=== PATIENT | male | born 1990 | race Caucasian/White ===

== ENCOUNTER 2022-05-16 19:17 | Emergency (ER) | payer OTHER, SELFPAY ==
[2022-05-16 19:22] VITALS: BP 155/92; PULSE 93; RESP 18; TEMP 36.5; O2SAT 98; BMI 38.5
--- NOTE | 2022-05-16 19:23 | ED.EYEPROB ---
HPI - Eye Problem General Chief complaint: Eye Problems <CRYSTAL White - Last Filed: 05/16/22 19:24> Stated complaint: unable to see from right eye <CRYSTAL White - Last Filed: 05/16/22 19:24> Time Seen by Provider: 05/16/22 19:52 <CRYSTAL White - Last Filed: 05/16/22 19:24> Source: patient <Julian Vail MD - Last Filed: 05/16/22 20:32> Mode of arrival: ambulatory <Julian Vail MD - Last Filed: 05/16/22 20:32> Limitations: no limitations <Julian Vail MD - Last Filed: 05/16/22 20:32> History of Present Illness HPI Narrative: patient noticed redness of right eye for last 3 days also noticed purulent discharge from right eye feel thin layer of cloud in front of right eye using homeopathic eyedrops without much relief no foreign body <Julian Vail MD - Last Filed: 05/16/22 20:32> Related Data Home medications: Previous Rx's Medication Instructions Recorded tobramycin 0.3 % eye drops 2 drp ophthalmic-Right Q4H #5 mL 05/16/22 <CRYSTAL White - Last Filed: 05/16/22 19:24> Allergies/adverse reactions: Allergies Allergy/AdvReac Type Severity Reaction Status Date / Time No Known Allergies Allergy Verified 05/16/22 19:27 <CRYSTAL White - Last Filed: 05/16/22 19:24> Review of Systems Review of Systems: Yes all other systems are reviewed and are negative <Julian Vail MD - Last Filed: 05/16/22 20:32> FOR[facility]LY [facility], [facility] Social History Social History: Social History Advance Directives: No Advance Directives Information Provided: No <CRYSTAL White - Last Filed: 05/16/22 19:24> Physical Exam Vital Signs: Vital Signs: Last Vital Signs Temp 97.7 F 05/16/22 19:22 Pulse 93 05/16/22 19:22 Resp 18 05/16/22 19:22 BP 155/92 H 05/16/22 19:22 Pulse Ox 98 05/16/22 19:22 BMI result Body Mass Index 38.5 <CRYSTAL White - Last Filed: 05/16/22 19:24> Vital Signs: Last Vital Signs Temp 97.7 F 05/16/22 19:22 Pulse 93 05/16/22 19:22 Resp 18 05/16/22 19:22 BP 155/92 H 05/16/22 19:22 Pulse Ox 98 05/16/22 19:22 BMI result Body Mass Index 38.5 <Julian Vail MD - Last Filed: 05/16/22 20:32> Const: General: no acute distress <Julian Vail MD - Last Filed: 05/16/22 20:32> HEENT: Head: Yes normal to inspection <Julian Vail MD - Last Filed: 05/16/22 20:32> Eyes: Visual Castañeda: normal visual castañeda by confrontation <Julian Vail MD - Last Filed: 05/16/22 20:32> Alignment and Position: alignment normal <Julian Vail MD - Last Filed: 05/16/22 20:32> Periorbital: periorbital findings normal <Julian Vail MD - Last Filed: 05/16/22 20:32> Eyelids: Yes eyelids normal <Julian Vail MD - Last Filed: 05/16/22 20:32> Conjunctivae: conjunctival abnormal ( inject) right <Julian Vail MD - Last Filed: 05/16/22 20:32> Sclerae: sclerae normal <Julian Vail MD - Last Filed: 05/16/22 20:32> Corneas: corneas normal and fluorescein used <Julian Vail MD - Last Filed: 05/16/22 20:32> Pupils: Equal, round and reactive pupils present <Julian Vail MD - Last Filed: 05/16/22 20:32> EOM: EOMs intact bilaterally <Julian Vail MD - Last Filed: 05/16/22 20:32> Direct Ophthalmoscopy: no photophobia, fundi normal bilaterally, anterior chamber normal and anterior chamber abnormal <Julian Vail MD - Last Filed: 05/16/22 20:32> Neuro: Cranial nerves: Yes Equal, round and reactive pupils present <Julian Vail MD - Last Filed: 05/16/22 20:32> Course Course Course Narrative: RME - 31 yo Welsh speaking male presents to the ER for evaluation of vision changes. 3 days ago his right eye was red so he got some OTC drops. Developed blurred vision. <CRYSTAL White - Last Filed: 05/16/22 19:24> Medications Administered Discontinued Medications Generic Name Dose Route Start Last Admin Trade Name Freq PRN Reason Stop Dose Admin Fluorescein Sodium 1 strip 05/16/22 19:28 05/16/22 20:20 Fluorescein Sodium Strip EYE-RIGHT 05/16/22 19:29 1 strip ONCE ONE Administration Tetracaine HCl 1 drop 05/16/22 19:28 05/16/22 20:21 Tetracaine Hcl/Pf 0.5% Oph Mariya 4 Ml Drops EYE-RIGHT 05/16/22 19:29 Not Given ONCE ONE Tobramycin Sulfate 2 drop 05/16/22 20:11 05/16/22 20:20 Tobramycin Sulfate 0.3% Mariya Op 5 Ml Btl EYE-RIGHT 05/16/22 20:12 2 drop ONCE ONE Administration <CRYSTAL White - Last Filed: 05/16/22 19:24> Medications Administered Discontinued Medications Generic Name Dose Route Start Last Admin Trade Name Freq PRN Reason Stop Dose Admin Fluorescein Sodium 1 strip 05/16/22 19:28 05/16/22 20:20 Fluorescein Sodium Strip EYE-RIGHT 05/16/22 19:29 1 strip ONCE ONE Administration Tetracaine HCl 1 drop 05/16/22 19:28 05/16/22 20:21 Tetracaine Hcl/Pf 0.5% Oph Mariya 4 Ml Drops EYE-RIGHT 05/16/22 19:29 Not Given ONCE ONE Tobramycin Sulfate 2 drop 05/16/22 20:11 05/16/22 20:20 Tobramycin Sulfate 0.3% Mariya Op 5 Ml Btl EYE-RIGHT 05/16/22 20:12 2 drop ONCE ONE Administration <Julian Vail MD - Last Filed: 05/16/22 20:32> Discharge Plan Discharge Clinical Impression: Bacterial conjunctivitis <CRYSTAL White - Last Filed: 05/16/22 19:24> Patient Disposition: Home, Self-Care <CRYSTAL White - Last Filed: 05/16/22 19:24> Instructions: Conjunctivitis (ED) <CRYSTAL White - Last Filed: 05/16/22 19:24> Additional Instructions: eyedrops as advised till clear follow with PCP if not better [place] se recomienda hasta alicia seguir con PCP si no mejor <CRYSTAL White - Last Filed: 05/16/22 19:24> Prescriptions: New tobramycin 0.3 % drops 2 drp ophthalmic-Right Q4H Qty: 5 0RF <CRYSTAL White - Last Filed: 05/16/22 19:24> Interventions: ED Discharge Assessment Last Done: 05/16/22 20:22 <CRYSTAL White - Last Filed: 05/16/22 19:24> Discharge Date/Time: 05/16/22 20:24 <CRYSTAL White - Last Filed: 05/16/22 19:24> Print Language: Welsh <CRYSTAL White - Last Filed: 05/16/22 19:24>
--- NOTE | 2022-05-16 20:17 | ED.EYEPROB ---
HPI - Eye Problem General Chief complaint: Eye Problems Stated complaint: unable to see from right eye Time Seen by Provider: 05/16/22 19:52 Related Data Previous Rx's Medication Instructions Recorded tobramycin 0.3 % eye drops 2 drp ophthalmic-Right Q4H #5 mL 05/16/22 Allergies Allergy/AdvReac Type Severity Reaction Status Date / Time No Known Allergies Allergy Verified 05/16/22 19:27 [facility] Social History Social History Advance Directives: No Advance Directives Information Provided: No Physical Exam Vital Signs: Vital Signs: Last Vital Signs Temp 97.7 F 05/16/22 19:22 Pulse 93 05/16/22 19:22 Resp 18 05/16/22 19:22 BP 155/92 H 05/16/22 19:22 Pulse Ox 98 05/16/22 19:22 BMI result Body Mass Index 38.5 Medications Administered Discontinued Medications Generic Name Dose Route Start Last Admin Trade Name Freq PRN Reason Stop Dose Admin Fluorescein Sodium 1 strip 05/16/22 19:28 05/16/22 20:20 Fluorescein Sodium Strip EYE-RIGHT 05/16/22 19:29 1 strip ONCE ONE Administration Tetracaine HCl 1 drop 05/16/22 19:28 05/16/22 20:21 Tetracaine Hcl/Pf 0.5% Oph Mariya 4 Ml Drops EYE-RIGHT 05/16/22 19:29 Not Given ONCE ONE Tobramycin Sulfate 2 drop 05/16/22 20:11 05/16/22 20:20 Tobramycin Sulfate 0.3% Mariya Op 5 Ml Btl EYE-RIGHT 05/16/22 20:12 2 drop ONCE ONE Administration Discharge Plan Discharge Clinical Impression: Bacterial conjunctivitis Patient Disposition: Home, Self-Care Instructions: Conjunctivitis (ED) Additional Instructions: eyedrops as advised till clear follow with PCP if not better [place] se recomienda hasta alicia seguir con PCP si no mejor Prescriptions: New tobramycin 0.3 % drops 2 drp ophthalmic-Right Q4H Qty: 5 0RF Interventions: ED Discharge Assessment Last Done: 05/16/22 20:22 Discharge Date/Time: 05/16/22 20:24 Print Language: [place]
[2022-05-16] MEDS: Fluorescein Sodium STRIP 1 STRIP EYE-RIGHT (20:20)
[2022-05-16] MEDS: Tobramycin Sulfate 0.3% Sol Op 5 ML BTL 2 DROP EYE-RIGHT (20:20)
== END 2022-05-16 20:24 | disposition home or self-care (01) ==
PROVIDERS: Emergency Provider Internal Medicine
DX: H10.9 Unspecified conjunctivitis (principal); H57.11 Ocular pain, right eye
CPT/HCPCS: 99282; 99283